=== PATIENT | female | born 1965 | race Two or more races ===

== ENCOUNTER 2018-04-29 06:09 | Day surgery (SDC) | END 2018-04-29 16:12 | disposition home or self-care (01) ==

== ENCOUNTER 2018-05-08 18:53 | Emergency (ER) | END 2018-05-08 21:39 | disposition home or self-care (01) ==

== ENCOUNTER 2018-06-25 07:12 | Day surgery (SDC) | END 2018-06-25 18:02 | disposition home or self-care (01) ==